=== PATIENT | male | born 1975 | race African-American/Black ===

== ENCOUNTER 2017-03-09 11:35 | Emergency (ER) | payer OTHER ==
[~2017-03-09] VITALS: Ht 175.3 cm; Wt 104.0 kg
[~2017-03-09 11:35] MED LIST: CLON-352 PO; PRIN10TA PO
[2017-03-09 11:45] VITALS: BP 205/137; PULSE 85; RESP 18; TEMP 98.3; O2SAT 100
[2017-03-09 12:35] VITALS: BP 200/129
[2017-03-09] MEDS ORDERED: CLON0.1T PO (13:12)
[2017-03-09] MEDS ORDERED: NAPR1TAB98 PO (13:12)
[2017-03-09 13:13] VITALS: BP 192/119; PULSE 70; RESP 18; O2SAT 98
[2017-03-09] MEDS ORDERED: PERC5TAB12 PO (13:23)
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
[2017-03-09] MEDS ORDERED: BUPIVACAINE HCL PF 0.5% 10 ML VIAL INFIL ONE (13:30)
== END 2017-03-09 13:38 | disposition home or self-care (01) ==
LOC: PHEFT 11:35
DX: K02.9 Dental caries, unspecified (principal); S02.5XXA Fracture of tooth (traumatic), initial encounter for closed fracture; X58.XXXA Exposure to other specified factors, initial encounter; Y93.9 Activity, unspecified; Y92.9 Unspecified place or not applicable; Y99.9 Unspecified external cause status
CPT/HCPCS: 64400